=== PATIENT | female | born 1970 | race African-American/Black ===

== ENCOUNTER 2017-03-07 11:19 | Observation (INO) | payer OTHER ==
[~2017-03-07] VITALS: Ht 165.1 cm; Wt 46.4 kg
[2017-03-07 12:00] VITALS: BP 114/72
[2017-03-07 13:00] VITALS: BP 114/72
[2017-03-07 14:38] VITALS: BP 116/70
[2017-03-07] MEDS ORDERED: ONDANSETRON PF 4 MG/2 ML VIAL. IV PRN (15:15)
[2017-03-07] MEDS ORDERED: ALPRAZolam 0.25 MG TABLET PO PRN (15:15)
[2017-03-07 15:43] LABS: BASO % 1 % (0-3); EOS % 0 % (0-3); HEMATOCRIT 36.9 % (36.0-47.0); HEMOGLOBIN 12.1 g/dL (12.0-15.5); LYMPH # 1.5 x10^3/uL (1.0-4.8); LYMPH % 45 % (24-48); MEAN CORPUSCULAR HEMOGLOBIN 30 pg (25-35); MEAN CORPUSCULAR HGB CONC 33 g/dL (31-37); MEAN CORPUSCULAR VOLUME 91 fL (79-100); MONO % 14 % (0-9); NEUT % 40 % (31-73); PLATELET COUNT 237 x10^3/uL (140-400); RED BLOOD COUNT 4.07 x10^6/uL (3.50-5.40); WHITE BLOOD COUNT 3.2 x10^3/uL (4.0-11.0)
[2017-03-07 16:13] LABS: ALBUMIN 3.5 g/dL (3.4-5.0); ALBUMIN/GLOBULIN RATIO 0.9 (1.0-1.7); CREATININE 0.7 mg/dL (0.6-1.0); TOTAL BILIRUBIN 0.2 mg/dL (0.2-1.0); TOTAL PROTEIN 7.4 g/dL (6.4-8.2)
[2017-03-07] MEDS ORDERED: POTASSIUM CHLORIDE 20 MEQ TABLET.ER. PO ONE (17:30)
--- NOTE | 2017-03-07 17:37 | PDOC1 ---
History and Physical Date of Admission Date of Admission 03/07/17 Identification/Chief Complaint Chief Complaint N/V and diarrhea Problems: Source Source: Patient History of Present Illness History of Present Illness 46-year-old started was nausea and vomiting since Sunday she called the office about that and she was instructed to keep hydrated and take [id number] antiacid she will cup this early this morning with severe diarrhea with multiple trips to to the bathroom was watery diarrhea she has not been able to eat and is becoming dizzy and very weak and very dehydrated, she was admitted for 24-hour observation for IV hydration and electrolyte check Past Medical History Cardiovascular: No pertinent hx Pulmonary: No pertinent hx GI: Constipation, Irritable bowel disease Heme/Onc: Anemia NOS Endocrine: Other (thyroid nodule) Past Surgical History Past Surgical History: Hysterectomy Family History Family History: Hypothyroidism Social History Smoke: No ALCOHOL: none Drugs: None Current Medications Current Medications Current Medications Medications (Trade) Dose Ordered Sig/Ileana Start Time Stop Time Status Last Admin Dose Admin Alprazolam (Xanax) 0.25 mg PRN Q4HRS PRN 03/07/17 15:15 Ondansetron HCl (Zofran) 4 mg PRN Q6HRS PRN 03/07/17 15:15 Pantoprazole Sodium (Protonix Vial) 40 mg DAILYAC 03/07/17 16:00 Potassium Chloride/Dextrose/ Sod Cl 1,000 ml @ 125 mls/hr Q8H 03/07/17 16:00 Allergies Allergies Allergies Coded Allergies Type Severity Reaction Last Updated Verified hydrocodone Allergy Intermediate Nausea and itching 03/07/17 Yes ibuprofen Allergy Intermediate Nausea and itching 03/07/17 Yes iron Allergy Intermediate Nausea 03/07/17 Yes naproxen Allergy Intermediate 03/07/17 Yes ROS Review of System CONSTITUTIONAL: No fever or chills EYES: No recent changes SKIN: No rash or itching CARDIOVASCULAR: No chest pain, syncope, palpitations, or edema RESPIRATORY: No SOB or cough GASTROINTESTINAL: See history of present illness NEUROLOGICAL: + headaches and weakness as well as dizziness ENDOCRINE: No cold or heat intolerance GENITOURINARY: No urgency or frequency of urination but has decreased urine output due to dehydration MUSCULOSKELETAL: No back pain or joint pain LYMPHATICS: No enlarged lymph nodes PSYCHIATRIC: No anxiety or depression Physical Exam Physical Exam GEN.: No apparent distress. Alert and oriented. HEENT: Head is normocephalic, atraumatic NECK: Supple. LUNGS: Clear to auscultation. HEART: RRR, S1, S2 present. Peripheral pulses intact ABDOMEN: Soft, mild diffuse tenderness. Positive bowel sounds. EXTREMITIES: Without any cyanosis. NEUROLOGIC: Normal speech, normal tone PSYCHIATRIC: Normal affect, normal mood. SKIN: No ulcerations Vitals Vitals Vital Signs Date Time Temp Pulse Resp B/P (MAP) Pulse Ox O2 Delivery O2 Flow Rate FiO2 03/07/17 14:38 97.7 65 18 116/70 (85) 100 Room Air 97.7 Labs Labs Laboratory Tests Test 03/07/17 15:30 White Blood Count 3.2 x10^3/uL (4.0-11.0) Red Blood Count 4.07 x10^6/uL (3.50-5.40) Hemoglobin 12.1 g/dL (12.0-15.5) Hematocrit 36.9 % (36.0-47.0) Mean Corpuscular Volume 91 fL (79-100) Mean Corpuscular Hemoglobin 30 pg (25-35) Mean Corpuscular Hemoglobin Concent 33 g/dL (31-37) Red Cell Distribution Width 13.0 % (11.5-14.5) Platelet Count 237 x10^3/uL (140-400) Neutrophils (%) (Auto) 40 % (31-73) Lymphocytes (%) (Auto) 45 % (24-48) Monocytes (%) (Auto) 14 % (0-9) Eosinophils (%) (Auto) 0 % (0-3) Basophils (%) (Auto) 1 % (0-3) Neutrophils # (Auto) 1.3 x10^3uL (1.8-7.7) Lymphocytes # (Auto) 1.5 x10^3/uL (1.0-4.8) Monocytes # (Auto) 0.4 x10^3/uL (0.0-1.1) Eosinophils # (Auto) 0.0 x10^3/uL (0.0-0.7) Basophils # (Auto) 0.0 x10^3/uL (0.0-0.2) Sodium Level 140 mmol/L (136-145) Potassium Level 3.0 mmol/L (3.5-5.1) Chloride Level 105 mmol/L (98-107) Carbon Dioxide Level 25 mmol/L (21-32) Anion Gap 10 (6-14) Blood Urea Nitrogen 6 mg/dL (7-20) Creatinine 0.7 mg/dL (0.6-1.0) Estimated GFR (Cockcroft-Gault) 109.0 BUN/Creatinine Ratio 9 (6-20) Glucose Level 103 mg/dL (70-99) Calcium Level 9.0 mg/dL (8.5-10.1) Total Bilirubin 0.2 mg/dL (0.2-1.0) Aspartate Amino Transf (AST/SGOT) 20 U/L (15-37) Alanine Aminotransferase (ALT/SGPT) 21 U/L (14-59) Alkaline Phosphatase 57 U/L (46-116) Total Protein 7.4 g/dL (6.4-8.2) Albumin 3.5 g/dL (3.4-5.0) Albumin/Globulin Ratio 0.9 (1.0-1.7) Amylase Level 76 U/L (25-115) Lipase 87 U/L (73-393) Laboratory Tests Test 03/07/17 15:30 White Blood Count 3.2 x10^3/uL (4.0-11.0) Red Blood Count 4.07 x10^6/uL (3.50-5.40) Hemoglobin 12.1 g/dL (12.0-15.5) Hematocrit 36.9 % (36.0-47.0) Mean Corpuscular Volume 91 fL (79-100) Mean Corpuscular Hemoglobin 30 pg (25-35) Mean Corpuscular Hemoglobin Concent 33 g/dL (31-37) Red Cell Distribution Width 13.0 % (11.5-14.5) Platelet Count 237 x10^3/uL (140-400) Neutrophils (%) (Auto) 40 % (31-73) Lymphocytes (%) (Auto) 45 % (24-48) Monocytes (%) (Auto) 14 % (0-9) Eosinophils (%) (Auto) 0 % (0-3) Basophils (%) (Auto) 1 % (0-3) Neutrophils # (Auto) 1.3 x10^3uL (1.8-7.7) Lymphocytes # (Auto) 1.5 x10^3/uL (1.0-4.8) Monocytes # (Auto) 0.4 x10^3/uL (0.0-1.1) Eosinophils # (Auto) 0.0 x10^3/uL (0.0-0.7) Basophils # (Auto) 0.0 x10^3/uL (0.0-0.2) Sodium Level 140 mmol/L (136-145) Potassium Level 3.0 mmol/L (3.5-5.1) Chloride Level 105 mmol/L (98-107) Carbon Dioxide Level 25 mmol/L (21-32) Anion Gap 10 (6-14) Blood Urea Nitrogen 6 mg/dL (7-20) Creatinine 0.7 mg/dL (0.6-1.0) Estimated GFR (Cockcroft-Gault) 109.0 BUN/Creatinine Ratio 9 (6-20) Glucose Level 103 mg/dL (70-99) Calcium Level 9.0 mg/dL (8.5-10.1) Total Bilirubin 0.2 mg/dL (0.2-1.0) Aspartate Amino Transf (AST/SGOT) 20 U/L (15-37) Alanine Aminotransferase (ALT/SGPT) 21 U/L (14-59) Alkaline Phosphatase 57 U/L (46-116) Total Protein 7.4 g/dL (6.4-8.2) Albumin 3.5 g/dL (3.4-5.0) Albumin/Globulin Ratio 0.9 (1.0-1.7) Amylase Level 76 U/L (25-115) Lipase 87 U/L (73-393) VTE Prophylaxis Ordered VTE Prophylaxis Devices: No VTE Pharmacological Prophylaxi: No (short stay) Assessment/Plan Assessment/Plan 1-acute gastroenteritis 2-hyperkalemia 3-dehydration LIVIER CRUZ MD Mar 07, 2017 17:37
[2017-03-07 19:00] VITALS: BP 107/63
[2017-03-07] MEDS: POTASSIUM CL 40MEQ D5-0.45NACL 1,000 ML IV SCH (20:12)
[2017-03-07] MEDS: PANTOPRAZOLE IV PUSH 40 MG VIAL. IVP SCH (20:12)
[2017-03-07 23:00] VITALS: BP 86/45
[2017-03-08 03:00] VITALS: BP 97/55
[2017-03-08 05:35] LABS: BASO % 1 % (0-3); EOS % 1 % (0-3); HEMOGLOBIN 10.6 g/dL (12.0-15.5); LYMPH # 1.6 x10^3/uL (1.0-4.8); LYMPH % 49 % (24-48); MEAN CORPUSCULAR HEMOGLOBIN 30 pg (25-35); MEAN CORPUSCULAR HGB CONC 33 g/dL (31-37); MEAN CORPUSCULAR VOLUME 91 fL (79-100); MONO % 14 % (0-9); NEUT % 35 % (31-73); PLATELET COUNT 198 x10^3/uL (140-400); RED BLOOD COUNT 3.52 x10^6/uL (3.50-5.40); WHITE BLOOD COUNT 3.3 x10^3/uL (4.0-11.0)
[2017-03-08 05:44] LABS: CALCIUM 8.4 mg/dL (8.5-10.1); CREATININE 0.7 mg/dL (0.6-1.0); POTASSIUM 3.6 mmol/L (3.5-5.1)
[2017-03-08 07:34] VITALS: BP 93/61
[2017-03-08] MEDS: PANTOPRAZOLE IV PUSH 40 MG VIAL. IVP SCH (09:47)
[2017-03-08] MEDS ORDERED: POTASSIUM CL 40MEQ D5-0.45NACL 1,000 ML IV SCH ×2 (09:47→10:00)
[2017-03-08] MEDS: POTASSIUM CL 40MEQ D5-0.45NACL 1,000 ML IV SCH ×2 (09:48)
[2017-03-08] MEDS ORDERED: PANT40TA3 PO (09:54)
[2017-03-08] MEDS ORDERED: ONDA4TAB10 SL (09:54)
--- NOTE | 2017-03-08 10:00 | PDOC ---
SUBJECTIVE Subjective feels better, no N/V less diarrhea OBJECTIVE Vital Signs Vital Signs Date Time Temp Pulse Resp B/P (MAP) Pulse Ox O2 Delivery O2 Flow Rate FiO2 03/08/17 07:34 98.1 68 16 93/61 (72) 100 Room Air 98.1 03/08/17 03:00 98.0 70 97/55 (69) 100 Room Air 98.0 03/07/17 23:00 98.5 67 86/45 (59) 96 Room Air 98.5 03/07/17 20:00 Room Air 03/07/17 19:00 97.7 71 107/63 (78) 100 Room Air 97.7 03/07/17 14:38 97.7 65 18 116/70 (85) 100 Room Air 97.7 03/07/17 13:00 97.5 68 18 114/72 (86) 100 97.5 03/07/17 13:00 Room Air 03/07/17 12:00 97.5 68 18 114/72 (86) 100 Room Air 97.5 I & O Intake and Output 03/09/17 07:00 Intake Total 360 ml Balance 360 ml Intake Oral 360 ml PHYSICAL EXAM Physical Exam no abdominal pain ASSESSMENT/PLAN Assessment/Plan plan to advance diet , another bag IVF , home later this AM Problems: COMMENT Lab Laboratory Tests Test 03/07/17 15:30 03/08/17 03:45 White Blood Count 3.2 x10^3/uL (4.0-11.0) 3.3 x10^3/uL (4.0-11.0) Red Blood Count 4.07 x10^6/uL (3.50-5.40) 3.52 x10^6/uL (3.50-5.40) Hemoglobin 12.1 g/dL (12.0-15.5) 10.6 g/dL (12.0-15.5) Hematocrit 36.9 % (36.0-47.0) 32.0 % (36.0-47.0) Mean Corpuscular Volume 91 fL (79-100) 91 fL (79-100) Mean Corpuscular Hemoglobin 30 pg (25-35) 30 pg (25-35) Mean Corpuscular Hemoglobin Concent 33 g/dL (31-37) 33 g/dL (31-37) Red Cell Distribution Width 13.0 % (11.5-14.5) 13.0 % (11.5-14.5) Platelet Count 237 x10^3/uL (140-400) 198 x10^3/uL (140-400) Neutrophils (%) (Auto) 40 % (31-73) 35 % (31-73) Lymphocytes (%) (Auto) 45 % (24-48) 49 % (24-48) Monocytes (%) (Auto) 14 % (0-9) 14 % (0-9) Eosinophils (%) (Auto) 0 % (0-3) 1 % (0-3) Basophils (%) (Auto) 1 % (0-3) 1 % (0-3) Neutrophils # (Auto) 1.3 x10^3uL (1.8-7.7) 1.2 x10^3uL (1.8-7.7) Lymphocytes # (Auto) 1.5 x10^3/uL (1.0-4.8) 1.6 x10^3/uL (1.0-4.8) Monocytes # (Auto) 0.4 x10^3/uL (0.0-1.1) 0.5 x10^3/uL (0.0-1.1) Eosinophils # (Auto) 0.0 x10^3/uL (0.0-0.7) 0.0 x10^3/uL (0.0-0.7) Basophils # (Auto) 0.0 x10^3/uL (0.0-0.2) 0.0 x10^3/uL (0.0-0.2) Sodium Level 140 mmol/L (136-145) 137 mmol/L (136-145) Potassium Level 3.0 mmol/L (3.5-5.1) 3.6 mmol/L (3.5-5.1) Chloride Level 105 mmol/L (98-107) 106 mmol/L (98-107) Carbon Dioxide Level 25 mmol/L (21-32) 25 mmol/L (21-32) Anion Gap 10 (6-14) 6 (6-14) Blood Urea Nitrogen 6 mg/dL (7-20) 4 mg/dL (7-20) Creatinine 0.7 mg/dL (0.6-1.0) 0.7 mg/dL (0.6-1.0) Estimated GFR (Cockcroft-Gault) 109.0 109.0 BUN/Creatinine Ratio 9 (6-20) Glucose Level 103 mg/dL (70-99) 88 mg/dL (70-99) Calcium Level 9.0 mg/dL (8.5-10.1) 8.4 mg/dL (8.5-10.1) Total Bilirubin 0.2 mg/dL (0.2-1.0) Aspartate Amino Transf (AST/SGOT) 20 U/L (15-37) Alanine Aminotransferase (ALT/SGPT) 21 U/L (14-59) Alkaline Phosphatase 57 U/L (46-116) Total Protein 7.4 g/dL (6.4-8.2) Albumin 3.5 g/dL (3.4-5.0) Albumin/Globulin Ratio 0.9 (1.0-1.7) Amylase Level 76 U/L (25-115) Lipase 87 U/L (73-393) LIVIER CRUZ MD Mar 08, 2017 10:00
--- NOTE | 2017-03-08 10:02 | PDOC3 ---
Discharge Summary* Date of Admission: Mar 07, 2017 Date of Discharge: Mar 08, 2017 Final Diagnosis 1-Gastroenteritis 2-hypokalemia 3-dehydration 4-anemia possibly dilutional , will follow out pt Procedures replace K+ and hydration Brief Hospital Course Ms. Saba is a 46 old [sex] who presented with [ ] Disposition/Orders: D/C to Home CONDITION AT DISCHARGE: Improved Diet: Regular FOLLOW UP APPOINTMENT: Dr. Cruz 1-2 weeks Time Spent Total time spent with patient [] minutes for coordination of care, counseling, and education. LIVIER CRUZ MD Mar 08, 2017 10:02
[2017-03-08 10:32] VITALS: BP 109/71
== END 2017-03-08 14:30 | disposition home or self-care (01) ==
LOC: 5 SOUTH 11:28 → INTOOBSV 11:28
PROVIDERS: ADMIT Internal Medicine; ATTEND Internal Medicine
DX: E86.0 Dehydration (principal); E87.6 Hypokalemia; K52.9 Noninfective gastroenteritis and colitis, unspecified; D64.9 Anemia, unspecified
CPT/HCPCS: 36415; 80048; 80053; 82150; 83690; 85025; 87045; 87086; 96365; 96366; 96375; 96376; C9113; G0378; G0379; J7042; 96361; 96374